=== PATIENT | male | born 1995 | race Caucasian/White ===

== ENCOUNTER 2017-11-07 14:40 | Emergency (ER) | payer MEDICAID ==
[~2017-11-07] VITALS: Ht 175.3 cm; Wt 58.0 kg
[2017-11-07 15:30] VITALS: Ht 175.3 cm; Wt 58.0 kg
[2017-11-07 18:21] VITALS: BP 124/74
== END 2017-11-07 18:21 | disposition home or self-care (01) ==
LOC: ED 14:40
DX: R11.2 Nausea with vomiting, unspecified (principal)
CPT/HCPCS: J1885; Q0162